=== PATIENT | male | born 1955 | race Caucasian/White ===

== ENCOUNTER → 2016-10-10 | Outpatient (CLI) | payer BC ==
[~2016-10-10] MED LIST: ALLO100T PO; AMLO10TA82 PO; LISI1TAB10 PO; OMEP20TA PO; PRAV40TA2 PO
--- NOTE | 2016-10-10 13:50 | Diagnostic Imaging Report ---
PROCEDURE: US abdomen complete. TECHNIQUE: Multiple real-time grayscale images were obtained over the abdomen in various projections. INDICATION: Acute right upper quadrant pain. COMPARISON: Renal ultrasound from 12/03/2014. FINDINGS: The liver is normal in size and echogenicity. There is no focal hepatic mass. The main portal vein is patent with antegrade flow. The gallbladder is distended without gallstones, wall thickening, or pericholecystic fluid. The common bile duct measures up to 0.2 cm in diameter. No intrahepatic biliary dilation. The visualized portions of the pancreas are normal. Portions of the head and tail are obscured by overlying bowel gas. The kidneys are normal in size. Multiple bilateral renal cysts are present. The largest on the left is exophytic arising from the lower pole measuring up to 6.1 cm. The largest on the right is in the mid pole measuring 2.4 cm in maximal diameter. No hydronephrosis, shadowing calculi, or suspicious mass lesion. The spleen is normal in size and without focal lesion. The aorta and IVC are normal in caliber where seen. IMPRESSION: 1. Normal gallbladder and normal caliber bile ducts. 2. Stable simple bilateral renal cysts, the largest in the lower pole of the left kidney. 3. Normal sonographic appearance of the liver. Dictated by: Dictated on workstation # [id number]
== END ==
LOC: RAD 08:32
PROVIDERS: ATTEND Family Medicine
DX: R10.11 Right upper quadrant pain (principal)
CPT/HCPCS: 76700